=== PATIENT | female | born 1965 | race Hispanic/Latino ===

== ENCOUNTER 2017-04-13 06:01 | Inpatient (IN) | payer OTHER ==
--- NOTE | 2017-04-13 06:23 | ED PDOC ---
Arrival/HPI - General Chief Complaint: Abdominal Pain Time Seen by Provider: 04/13/17 06:04 Historian: Patient - History of Present Illness Narrative History of Present Illness (Text): 04/13/17 06:19 Pamla Freire is a 51 year old female, whose past medical history includes gastric bypass, pancreatitis, and cosmetic surgery, who presents to the emergency department complaining of gradually worsening epigastric pain radiating to her back for the past few days. Patient reports associated nausea with a few episodes of vomiting 2 days prior. Patient states she took Prilosec at home but denies any relief. Patient denies any alcohol abuse, fever, chills, chest pain, shortness of breath, urinary symptoms, back pain, neck pain, headache, dizziness, or any other complaints. Time/Duration: < week (few days) Symptom Onset: Gradual Symptom Course: Unchanged Activities at Onset: Rest, Light Context: Home Past Medical History - Provider Review Nursing Documentation Reviewed: Yes - Infectious Disease Hx of Infectious Diseases: None - Tetanus Immunization Tetanus Immunization: Unknown - Pulmonary Hx Asthma: Yes - Psychiatric Hx Depression: No Hx Emotional Abuse: No Hx Physical Abuse: No Hx Substance Use: No - Surgical History Hx Gastric Bypass Surgery: Yes - Suicidal Assessment Feels Threatened In Home Enviroment: No Family/Social History - Physician Review Nursing Documentation Reviewed: Yes Family/Social History: Unknown Family HX Smoking Status: yes Hx Alcohol Use: Yes Hx Substance Use: No Hx Substance Use Treatment: No Allergies/Home Meds Allergies/Adverse Reactions: Allergies morphine Adverse Reaction (Verified 04/13/17 06:19) VOMITING Home Medications: Home Meds Medication Instructions Recorded Confirmed No Known Home Med [No Known Home 12/26/13 04/13/17 Med] Review of Systems - Physician Review All systems were reviewed & negative as marked: Yes - Review of Systems Constitutional: Normal. absent: Night Sweats Eyes: Normal ENT: Normal Respiratory: Normal. absent: SOB, Cough Cardiovascular: Normal. absent: Chest Pain Gastrointestinal: Abdominal Pain, Nausea, Vomiting. absent: Diarrhea Genitourinary Female: Normal. absent: Dysuria, Frequency, Hematuria, Urine Output Changes Musculoskeletal: Normal. absent: Back Pain, Neck Pain Skin: Normal. absent: Rash Neurological: Normal. absent: Headache, Dizziness Endocrine: Normal Hemo/Lymphatic: Normal Psychiatric: Normal Physical Exam Vital Signs Reviewed: Yes Vital Signs Temp Pulse Resp BP 04/13/17 06:20 98.1 F 94 H 18 162/97 H Temperature: Afebrile Blood Pressure: Normal Pulse: Regular Respiratory Rate: Normal Appearance: Positive for: Well-Appearing, Non-Toxic, Comfortable Pain Distress: None Mental Status: Positive for: Alert and Oriented X 3 - Systems Exam Head: Present: Atraumatic, Normocephalic Pupils: Present: PERRL Extroacular Muscles: Present: EOMI Conjunctiva: Present: Normal Mouth: Present: Moist Mucous Membranes Neck: Present: Normal Range of Motion Respiratory/Chest: Present: Clear to Auscultation, Good Air Exchange. No: Respiratory Distress, Accessory Muscle Use Cardiovascular: Present: Regular Rate and Rhythm, Normal S1, S2. No: Murmurs Abdomen: Present: Tenderness (RUQ tenderness), Normal Bowel Sounds, Guarding. No: Distention, Peritoneal Signs Back: Present: Normal Inspection Upper Extremity: Present: Normal Inspection. No: Cyanosis, Edema Lower Extremity: Present: Normal Inspection. No: Edema Neurological: Present: GCS=15, CN II-XII Intact, Speech Normal Skin: Present: Warm, Dry, Normal Color. No: Rashes Psychiatric: Present: Alert, Oriented x 3, Normal Insight, Normal Concentration Medical Decision Making ED Course and Treatment: 04/13/17 06:20 Impression: 51 year old female complaining of epigastric pain radiating to her back, nausea , and vomiting. Plan: -- EKG -- Labs, lipase -- IV fluids -- Zofran -- Pepcid -- Toradol -- Reassess and disposition Progress Notes: Reviewed EKG, NSR at 91 bpm. Prolonged QT. Non-specific ST/T wave changes. 04/13/17 07:[address] Fernandes, pending CT scan, labs, re-evaluation, and disposition. - Lab Interpretations Lab Results: 04/13/17 06:29 Lab Results 04/13/17 06:29: WBC 4.0 L, RBC 4.77, Hgb 9.9 L, Hct 32.1 L, MCV 67.3 L, MCH 20.8 L, MCHC 30.8 L, RDW 16.1 H, Plt Count 342, MPV 9.8 - RAD Interpretation Radiology Orders: 04/13/17 06:50 GALLBLADDER & PANCREAS [US] Stat - EKG Interpretation Interpreted by ED Physician: Yes Type: 12 lead EKG - Medication Orders Current Medication Orders: Sodium Chloride (Sodium Chloride 0.9%) 1,000 mls @ 999 mls/hr IV .Q1H1M STA Stop: 04/13/17 07:32 Last Admin: 04/13/17 06:37 Dose: 999 mls/hr Discontinued Medications Famotidine (Pepcid) 20 mg IVP STAT STA Stop: 04/13/17 06:33 Last Admin: 04/13/17 06:38 Dose: 20 mg Famotidine (Pepcid) Confirm Administered Dose 20 mg .ROUTE .STK-MED ONE Stop: 04/13/17 06:35 Last Admin: 04/13/17 06:38 Dose: Ketorolac Tromethamine (Toradol) 30 mg IVP ONCE ONE Stop: 04/13/17 06:33 Last Admin: 04/13/17 06:37 Dose: 30 mg Ondansetron HCl (Zofran Inj) 4 mg IVP ONCE ONE Stop: 04/13/17 06:33 Last Admin: 04/13/17 06:37 Dose: 4 mg - Scribe Statement The provider has reviewed the documentation as recorded by the Rachelibalejo Del Toro All medical record entries made by the Rachelibalejo were at my direction and personally dictated by me. I have reviewed the chart and agree that the record accurately reflects my personal performance of the history, physical exam, medical decision making, and the department course for this patient. I have also personally directed, reviewed, and agree with the discharge instructions and disposition. Disposition/Present on Arrival - Present on Arrival Any Indicators Present on Arrival: No History of DVT/PE: No History of Uncontrolled Diabetes: No - Disposition Have Diagnosis and Disposition been Completed?: No Diagnosis: Abdominal pain Disposition Time: 07:00 Condition: STABLE Forms: [employer] (Wallisian)
[2017-04-13] MEDS ORDERED: Sodium Chloride 0.9% 1,000 ML IV STA (06:32)
[2017-04-13 06:43] LABS: HEMOGLOBIN 9.9 gm/dL (12.0-16.0); MEAN CELL VOLUME 67.3 fL (80.0-105.0); MEAN CORPUSCULAR HEMOGLOBIN 20.8 pg (25.0-35.0); MEAN CORPUSCULAR HGB CONC 30.8 g/dl (31.0-37.0); MEAN PLATELET VOLUME 9.8 fl (7.0-11.0); PLATELET COUNT 342 10^3/uL (120.0-450.0); RBC 4.77 10^6/uL (3.5-6.1); RED CELL DISTRIBUTION WIDTH 16.1 % (11.5-14.5)
[2017-04-13 06:51] LABS: ALB/GLOB RATIO 1.1 (1.1-1.8); ALT/SGPT 603 U/L (7-56); AST/SGOT 648 U/L (15-39); BLOOD UREA NITROGEN 9 mg/dL (7-21); GFR AFRICAN-AMERICAN > 60; GFR NON-AFRICAN AMERICAN > 60; LIPASE 49 U/L (23-300)
[2017-04-13] MEDS ORDERED: HYDROmorphone 0.5 mg/0.5 ml ISec IVP STA ×3 (07:14→12:16)
--- NOTE | 2017-04-13 07:15 | ED PDOC ---
Physical Exam Vital Signs Temp Pulse Resp BP Pulse Ox 04/13/17 08:12 80 18 148/90 95 04/13/17 06:20 98.1 F 94 H 18 162/97 H Medical Decision Making ED Course and Treatment: 04/13/17 07:00 Patient signed out to me by Dr. Yu. 51 year old female complaining of abdominal pain for a few hours. Pending Sono. 04/13/17 08:52 Gallbladder Ultrasound: Dictator : Anastacio Curtis MD FINDINGS: LIVER:Measures 23.8 cm in length suggestive of hepatomegaly. Normal echogenicity of the liver parenchyma. No mass. No intrahepatic bile duct dilatation. GALLBLADDER: Distended but thin walled with no pericholecystic fluid collection. Numerous calculi are identified layering in the dependent portion with a moderate amount of sludge. Clinically correlate for potential cholecystitis though this is an equivocal appearance. COMMON BILE DUCT:Measures 9.8 mm with no choledocholithiasis appreciable. PANCREAS:Completely obscured by bowel gas. RIGHT KIDNEY:Measures 12.8 cm in length. Normal echogenicity. No calculus, mass , or hydronephrosis. AORTA:No aneurysmal dilatation. IVC:Unremarkable. OTHER FINDINGS:None . IMPRESSION: 1. 9.8 mm common bile duct dilatation without obvious choledocholithiasis. The gallbladder is distended but thin walled with no pericholecystic fluid collection. Extensive cholelithiasis identified as well as sludge at the dependent gallbladder. Clinically correlate for potential cholecystitis. No prominent biliary tree dilatation. 2. Hepatomegaly suggested. 3. Previous completely obscured by overlying bowel gas. 04/13/17 08:59 Sono results as noted. Patient started on iv antibiotics for cholecystitis. Given analgesia for pain. Case discussed with surgical scrub tech for evaluation. Case discussed with Dr. Yung for admission for acute cholecystitis. - Lab Interpretations Lab Results: 04/13/17 06:29 04/13/17 06:29 Lab Results 04/13/17 06:29: Sodium 141, Potassium 3.5 L, Chloride 103, Carbon Dioxide 29, Anion Gap 13, BUN 9, Creatinine 0.6, Est GFR ( Amer) > 60, Est GFR (Non- Af Amer) > 60, Random Glucose 97, Calcium 9.0, Total Bilirubin 3.3 H, AST 648 H , ALT 603 H, Alkaline Phosphatase 405 H, Total Protein 7.5, Albumin 4.0, Globulin 3.5, Albumin/Globulin Ratio 1.1, Lipase 49 04/13/17 06:29: WBC 4.0 L, RBC 4.77, Hgb 9.9 L, Hct 32.1 L, MCV 67.3 L, MCH 20.8 L, MCHC 30.8 L, RDW 16.1 H, Plt Count 342, MPV 9.8, Gran % 67.5, Lymph % ( Auto) 18.8 L, Hickman % (Auto) 9.8 H, Eos % (Auto) 3.4, Baso % (Auto) 0.5, Gran # 2.76, Lymph # 0.8 L, Hickman # 0.4, Eos # 0.1, Baso # 0.02 - RAD Interpretation Radiology Orders: 04/13/17 06:50 GALLBLADDER & PANCREAS [US] Stat - Medication Orders Current Medication Orders: Metronidazole (Flagyl) 500 mg in 100 mls @ 100 mls/hr IVPB STAT STA PRN Reason: Protocol Stop: 04/13/17 09:52 Ceftriaxone Sodium (Rocephin 1 Gram Ivpb) 1 gm in 100 mls @ 200 mls/hr IV ONCE STA PRN Reason: Protocol Stop: 04/13/17 09:22 Discontinued Medications Famotidine (Pepcid) 20 mg IVP STAT STA Stop: 04/13/17 06:33 Last Admin: 04/13/17 06:38 Dose: 20 mg Famotidine (Pepcid) Confirm Administered Dose 20 mg .ROUTE .ST-MED ONE Stop: 04/13/17 06:35 Last Admin: 04/13/17 06:38 Dose: Hydromorphone HCl (Dilaudid) 0.5 mg IVP STAT STA Stop: 04/13/17 07:15 Last Admin: 04/13/17 07:28 Dose: 0.5 mg Hydromorphone HCl (Dilaudid) 0.5 mg IVP STAT STA Stop: 04/13/17 08:11 Sodium Chloride (Sodium Chloride 0.9%) 1,000 mls @ 999 mls/hr IV .Q1H1M STA Stop: 04/13/17 07:32 Last Admin: 04/13/17 06:37 Dose: 999 mls/hr Ketorolac Tromethamine (Toradol) 30 mg IVP ONCE ONE Stop: 04/13/17 06:33 Last Admin: 04/13/17 06:37 Dose: 30 mg Ondansetron HCl (Zofran Inj) 4 mg IVP ONCE ONE Stop: 04/13/17 06:33 Last Admin: 04/13/17 06:37 Dose: 4 mg - Scribe Statement The provider has reviewed the documentation as recorded by the Salvador Garcia Provider Scribe Attestation: All medical record entries made by the Scribe were at my direction and personally dictated by me. I have reviewed the chart and agree that the record accurately reflects my personal performance of the history, physical exam, medical decision making, and the department course for this patient. I have also personally directed, reviewed, and agree with the discharge instructions and disposition. Disposition/Present on Arrival - Present on Arrival Any Indicators Present on Arrival: No History of DVT/PE: No History of Uncontrolled Diabetes: No Urinary Catheter: No History of Decub. Ulcer: No History Surgical Site Infection Following: None - Disposition Have Diagnosis and Disposition been Completed?: Yes Diagnosis: Abdominal pain, Cholecystitis Disposition: HOSPITALIZED Disposition Time: 08:45 Patient Plan: Admission Patient Problems: Current Active Problems Problem Status Onset Abdominal pain Acute Condition: FAIR Referrals: Eagle Gates MD [Primary Care Provider] - Follow up with primary Forms: [employer] (Irish)
[2017-04-13 07:30] LABS: BASO # 0.02 K/mm3 (0.0-2.0); BASO % 0.5 % (0.0-3.0); EOS # 0.1 (0.0-0.7); EOS % 3.4 % (1.5-5.0); GRAN # 2.76 (1.4-6.5); GRAN % 67.5 % (50.0-68.0); LYMPH # 0.8 (1.2-3.4); LYMPH % 18.8 % (22.0-35.0); MONO # 0.4 (0.1-0.6); MONO % 9.8 % (1.0-6.0)
[2017-04-13] MEDS ORDERED: HYDROmorphone 1 mg/ml ISec IVP STA (08:10)
--- NOTE | 2017-04-13 08:44 | US ---
HISTORY: upper abdominal pain COMPARISON: None. TECHNIQUE: Sonographic evaluation of the right upper quadrant of the abdomen. FINDINGS: LIVER: Measures 23.8 cm in length suggestive of hepatomegaly. Normal echogenicity of the liver parenchyma. No mass. No intrahepatic bile duct dilatation. GALLBLADDER: Distended but thin walled with no pericholecystic fluid collection. Numerous calculi are identified layering in the dependent portion with a moderate amount of sludge. Clinically correlate for potential cholecystitis though this is an equivocal appearance. COMMON BILE DUCT: Measures 9.8 mm with no choledocholithiasis appreciable. PANCREAS: Completely obscured by bowel gas. RIGHT KIDNEY: Measures 12.8 cm in length. Normal echogenicity. No calculus, mass, or hydronephrosis. AORTA: No aneurysmal dilatation. IVC: Unremarkable. OTHER FINDINGS: None . IMPRESSION: 1. 9.8 mm common bile duct dilatation without obvious choledocholithiasis. The gallbladder is distended but thin walled with no pericholecystic fluid collection. Extensive cholelithiasis identified as well as sludge at the dependent gallbladder. Clinically correlate for potential cholecystitis. No prominent biliary tree dilatation. 2. Hepatomegaly suggested. 3. Previous completely obscured by overlying bowel gas.
[2017-04-13] MEDS ORDERED: cefTRIAXone 1 gm 1 GM/100 ML BAG IV STA (08:53)
[2017-04-13] MEDS ORDERED: metroNIDAZOLE IV 500 mg/100 ml 500 MG/100 ML BAG IVPB STA (08:53)
--- NOTE | 2017-04-13 09:33 | CP.PCM.CON ---
History of Present Illness - History of Present Illness History of Present Illness: General Surgery Consult Note Resident: Gladys Attending: Brian HPI: We are being consulted for RUQ pain. Pt is a 51 year old WF with a 5 day hx of RUQ pain radiating to the R. shoulder and back. It is associated with one episodes of nonbloody emesis. Also complains of not being able to take Justine deep breath. Denies diarrhea. The pain has been constant since its onset. She has had one prior episode of this pain over 10 years ago. She has a history of a Mercedez-en-Y 17 years ago. She lost 100lbs in 6-8 months. Abdominal US showed numerous stones and sludge in the GB and a CBD measuring 9.8mm with no obvious choledocholithiasis. PMH: Lyme Dz, Asthma PSH: Mercedez-en-Y, x2 Meds: Pristiq Allergies: Morphine Review of Systems - Constitutional Constitutional: As Per HPI - EENT Eyes: As Per HPI Ears: As Per HPI Nose/Mouth/Throat: As Per HPI - Breasts Breasts: As Per HPI - Cardiovascular Cardiovascular: As Per HPI - Respiratory Respiratory: Dyspnea - Gastrointestinal Gastrointestinal: As Per HPI, Abdominal Pain, Vomiting - Genitourinary Genitourinary: As Per HPI - Musculoskeletal Musculoskeletal: Back Pain Additional comments: R. Shoulder pain Past Patient History - Infectious Disease Hx of Infectious Diseases: None - Tetanus Immunizations Tetanus Immunization: Unknown - Past Social History Smoking Status: Never Smoked Chewing Tobacco Use: No Alcohol: None Drugs: Denies - PULMONARY Hx Asthma: Yes - PSYCHIATRIC Hx Depression: No Hx Emotional Abuse: No Hx Physical Abuse: No Hx Substance Use: No - SURGICAL HISTORY Hx Gastric Bypass Surgery: Yes (Mercedez-en-Y) Meds Allergies/Adverse Reactions: Allergies Allergy/AdvReac Type Severity Reaction Status Date / Time morphine AdvReac VOMITING Verified 04/13/17 06:19 - Medications Medications: Current Medications Metronidazole (Flagyl) 500 mg in 100 mls @ 100 mls/hr IVPB STAT STA PRN Reason: Protocol Stop: 04/13/17 09:52 Physical Exam - Constitutional Appears: Non-toxic - Head Exam Head Exam: NORMAL INSPECTION - Eye Exam Eye Exam: EOMI - ENT Exam ENT Exam: Mucous Membranes Moist - Respiratory Exam Respiratory Exam: Clear to Auscultation Bilateral - Cardiovascular Exam Cardiovascular Exam: REGULAR RHYTHM - GI/Abdominal Exam GI & Abdominal Exam: Soft, Tenderness (RUQ, +Reyes). absent: Distended, Firm Results - Vital Signs Recent Vital Signs: Last Vital Signs Temp 98.1 F 04/13/17 06:20 Pulse 80 04/13/17 08:12 Resp 18 04/13/17 08:12 BP 148/90 04/13/17 08:12 Pulse Ox 95 04/13/17 08:12 - Labs Result Diagrams: 04/13/17 06:29 04/13/17 06:29 Assessment & Plan - Assessment and Plan (Free Text) Assessment: 51 y/o WF with Cholelithiasis * poss MRCP * NPO * Pain Control * IVF * Will discuss case with attending Anastacio Graham DO PGY-1
[2017-04-13] MEDS ORDERED: HYDROmorphone 0.5 mg/0.5 ml ISec IVP PRN (10:31)
--- NOTE | 2017-04-13 11:06 | CARD ---
APPROVED REPORT EKG Measurement Heart [id number] <Conclusion> Normal sinus rhythm with sinus arrhythmia Prolonged QT Abnormal ECG
[2017-04-13] MEDS ORDERED: HYDROmorphone 1 mg/ml ISec IVP PRN (13:09)
[2017-04-13] MEDS ORDERED: Oxycodone/Acetaminophen 5/325 mg Tab PO PRN (13:09)
[2017-04-13 14:19] VITALS: BMI 35.2
[2017-04-13] MEDS ORDERED: Pneumococcal 23-Valent Vaccine IM ONE (14:19)
[2017-04-13 16:11] LABS: URINE BILIRUBIN MODERATE (NEGATIVE); URINE BLOOD NEGATIVE (NEGATIVE); URINE GLUCOSE (UA) NEGATIVE (NEGATIVE); URINE LEUKOCYTE ESTERASE NEGATIVE Leu/uL (NEGATIVE); URINE NITRATE NEGATIVE (NEGATIVE); URINE PROTEIN TRACE mg/dL (<30 mg/dL)
--- NOTE | 2017-04-13 16:11 | CP.PCM.CON ---
<Christopher Brady - Last Filed: 04/13/17 16:12> History of Present Illness - History of Present Illness History of Present Illness: PGY5 GI Fellow Consult Note Patient is 51yo female with PMHx significant for morbid obesity s/p Mercedez-en-Y gastric bypass surgery who presented to the ED with abdominal pain. The patient states that Monday she suddenly developed epigastric and RUQ abdominal pain radiating to the back and right shoulder which awoke her from sleep several hours after eating dinner. Pain remained constant and intensified that evening leading to nausea and vomiting. In the days that followed pain returned in waves but remained present improving to, at best, a 4/10. She altered her diet, eating only liquids for two days but notes that Monday she became very nauseated and unable to tolerate PO, finally coming to the ED this morning when she could no longer tolerate the pain. Work up thus far has revealed abnormal LFTs in a mixed pattern with U/S revealing dilated CBD (9.8mm) with extensive cholelithiasis. She was initially scheduled for laparoscopic cholecystectomy but this has since been cancelled and our service consulted for further evaluation. Patient is in severe pain at present, modestly improved with currently pain management. She admits to continued nausea and dry heaves. Denies any change in bowel habits, sick contacts, fever, chills, weight loss, hematochezia, melena. PMHx: See HPI PSHx: Mercedez en Y gastric bypass 17 yrs ago; 2 FHx: Multiple family members with Familial Mediterranean Fever Social: Denies EtOH, tobacco or illicit drug use Endo: Endoscopy prior to gastric bypass surgery, unremarkable 12 system ROS performed and negative except where stated above. Past Patient History - Infectious Disease Hx of Infectious Diseases: None - Tetanus Immunizations Tetanus Immunization: Unknown - Past Social History Smoking Status: Never Smoked - CARDIAC Hx Cardiac Disorders: No - PULMONARY Hx Respiratory Disorders: Yes Hx Asthma: Yes - NEUROLOGICAL Hx Neurological Disorder: No - HEENT Hx HEENT Problems: No - RENAL Hx Chronic Kidney Disease: No - ENDOCRINE/METABOLIC Hx Endocrine Disorders: No - HEMATOLOGICAL/ONCOLOGICAL Hx Blood Disorders: No - INTEGUMENTARY Hx Dermatological Problems: Yes (TATTOOS) - MUSCULOSKELETAL/RHEUMATOLOGICAL Hx Musculoskeletal Disorders: No Hx Falls: No - GASTROINTESTINAL Hx Gastrointestinal Disorders: Yes Hx Gall Bladder Disease: Yes (CHOLECYSTITIS-NUMEROUS GSTONES CBD 9.8 04-13-17) Other/Comment: GASTRIC BYPASS ROUEX-EN 17 YRS AGO.LOST 100 LBS IN 6-8 MONS. - GENITOURINARY/GYNECOLOGICAL Hx Genitourinary Disorders: No - PSYCHIATRIC Hx Psychophysiologic Disorder: Yes Hx Depression: Yes Hx Emotional Abuse: No Hx Physical Abuse: No Hx Substance Use: No - SURGICAL HISTORY Hx Surgeries: Yes Hx Gastric Bypass Surgery: Yes (Mercedez-en-Y) Meds Allergies/Adverse Reactions: Allergies Allergy/AdvReac Type Severity Reaction Status Date / Time morphine AdvReac VOMITING Verified 04/13/17 12:12 - Medications Medications: Current Medications Hydromorphone HCl (Dilaudid) 1 mg IVP Q4H PRN PRN Reason: Pain, severe (8-10) Last Admin: 04/13/17 15:27 Dose: 1 mg Dextrose/Sodium Chloride (Dextrose 5%/0.45% Ns 1000 Ml) 1,000 mls @ 150 mls/hr IV .Q6H40M KORY Ondansetron HCl (Zofran Inj) 4 mg IVP Q4 PRN PRN Reason: Nausea/Vomiting Last Admin: 04/13/17 15:26 Dose: 4 mg Oxycodone/Acetaminophen (Percocet 5/325 Mg Tab) 1 tab PO Q4H PRN PRN Reason: Pain, moderate (4-7) Stop: 04/16/17 13:10 Physical Exam - Constitutional Appears: In Acute Distress (significant discomfort) - Eye Exam Eye Exam: EOMI, PERRL - ENT Exam ENT Exam: Mucous Membranes Dry - Respiratory Exam Respiratory Exam: Clear to Auscultation Bilateral. absent: Rales, Rhonchi, Wheezes - Cardiovascular Exam Cardiovascular Exam: Tachycardia, REGULAR RHYTHM, +S1, +S2 - GI/Abdominal Exam GI & Abdominal Exam: Guarding, Normal Bowel Sounds, Soft, Tenderness (RUQ, minimal in epigastrium; +brand). absent: Distended, Firm, Organomegaly, Rigid - Extremities Exam Extremities exam: Positive for: normal inspection. Negative for: pedal edema - Neurological Exam Neurological exam: Alert, Oriented x3 - Psychiatric Exam Psychiatric exam: Anxious - Skin Skin Exam: Diaphoretic, Warm Results - Vital Signs Recent Vital Signs: Last Vital Signs Temp 98.4 F 04/13/17 13:55 Pulse 80 04/13/17 13:55 Resp 18 04/13/17 13:55 BP 148/90 04/13/17 13:55 Pulse Ox 95 04/13/17 08:12 - Labs Result Diagrams: 04/13/17 06:29 04/13/17 06:29 Assessment & Plan - Assessment and Plan (Free Text) Assessment: Patient is 51yo female with PMHx significant for morbid obesity s/p Mercedez-en-Y gastric bypass surgery who presented to the ED with abdominal pain. -Abdominal pain -Elevated LFTs, mixed picture - suggestive of biliary obstruction, possibly choledocolithiasis -Cholelithiasis -Nausea and vomiting -H/O Mercedez-en-Y gastric bypass Plan: -Patient would benefit from MRCP to evaluate CBD for choledocolithiasis or other obstructive lesion -If MRCP + for obstruction, patient would benefit from ERCP; however, given her Mercedez-en-Y anatomy, we would be unable to perform this procedure at [facility] [place] [facility] as we do not have the equipment available for this procedure; Pt would likely benefit from transfer to a [place] setting for ongoing care if possible -If MRCP -, recommend re-evaluation with surgical consult for cholecystectomy -Recommend Zosyn IV as ordered given risk for cholangitis -IVF as ordered -NPO for MRCP; then OK to have liquid diet if tolerating -Increase pain medications to alleviate symptoms; discussed with primary service -Zofran PRN nausea - Date & Time Date: 04/13/17 Time: 15:45 <Hubert Haskins - Last Filed: 04/13/17 17:37> Meds - Medications Medications: Current Medications Hydromorphone HCl (Dilaudid) 1 mg IVP Q4H PRN PRN Reason: Pain, severe (8-10) Last Admin: 04/13/17 15:27 Dose: 1 mg Dextrose/Sodium Chloride (Dextrose 5%/0.45% Ns 1000 Ml) 1,000 mls @ 150 mls/hr IV .Q6H40M KORY Piperacillin Sod/Tazobactam Sod (Zosyn 3.375 In Ns 100ml) 100 mls @ 200 mls/hr IVPB Q6 KORY PRN Reason: Protocol Stop: 04/14/17 00:29 Ondansetron HCl (Zofran Inj) 4 mg IVP Q4 PRN PRN Reason: Nausea/Vomiting Last Admin: 04/13/17 15:26 Dose: 4 mg Oxycodone/Acetaminophen (Percocet 5/325 Mg Tab) 1 tab PO Q4H PRN PRN Reason: Pain, moderate (4-7) Stop: 04/16/17 13:10 Results - Vital Signs Recent Vital Signs: Last Vital Signs Temp 98.4 F 04/13/17 13:55 Pulse 80 04/13/17 13:55 Resp 18 04/13/17 13:55 BP 148/90 04/13/17 13:55 Pulse Ox 95 04/13/17 08:12 - Labs Result Diagrams: 04/13/17 06:29 04/13/17 06:29 Labs: Laboratory Results - last 24 hr 04/13/17 15:00 Urine Color Yellow Urine Appearance Clear Urine pH 6.0 Ur Specific [place] 1.020 Urine Protein Trace H Urine Glucose (UA) Negative Urine Ketones Negative Urine Blood Negative Urine Nitrate Negative Urine Bilirubin Moderate H Urine Urobilinogen 4.0 H Ur Leukocyte Esterase Negative Urine RBC TEST NOT PERFORMED Urine WBC 2 - 5 Ur Epithelial Cells 6 - 8 Amorphous Sediment Small Urine HCG, Qual Negative Attending/Attestation - Attestation I have personally seen and examined this patient.: Yes I have fully participated in the care of the patient.: Yes I have reviewed all pertinent clinical information: Yes Notes (Text): 04/13/17 17:10 51 year old female with h/o obesity s/p RNY gastric bypass who presents with severe epigastric pain radiating to the back, cholelithiasis, elevated lfts, and dilated CBD suggestive of choledocholithiais 1. Choledocholithiasis 2. Cholelithiasis Plan: -recommend MRCP to confirm diagnosis of choledocholithiasis -recommend IV antibiotics (zosyn) for biliary obstruction and prophylaxis of cholangitis -patient will likely need balloon enteroscopy/ercp which is not possible at this facility -would recommend transfer to tertiary care facility such as [facility] -in the meantime, would recommend pain control with narcotics, IV hydration, anti-emetics -liquid diet unless persistent vomiting -appreciate surgical evaluation -in the event that she needs urgent biliary decompression or a temporizing measure until such time that she can undergo balloon assisted ERCP, PTC would probably be the best approach -alternatively, the patient could undergo cholecystectomy, manual CBD exploration, +/- T Tube insertion depending on the surgical opinion -there are no endoscopic options for this patient at this hospital such as typical ERCP
[2017-04-13 16:14] LABS: HCG,QUALITATIVE URINE NEGATIVE (NEGATIVE)
[2017-04-13 16:15] LABS: URINE APPEARANCE CLEAR (CLEAR); URINE COLOR YELLOW (YELLOW)
[2017-04-13 16:34] LABS: URINE AMORPHOUS SEDIMENT SMALL
[2017-04-13] MEDS: Piperacillin/Tazobact 3.375 gm 100 ML IVPB SCH ×2 (18:19→23:46)
[2017-04-13] MEDS: HYDROmorphone 1 mg/ml ISec IVP PRN (18:20)
[2017-04-13 18:23] VITALS: RESP 20
[2017-04-13] MEDS: Dextrose 5%/0.45% NS 1,000 ML IV SCH (18:45)
--- NOTE | 2017-04-13 20:16 | MRI ---
EXAM: MR Abdomen Without Intravenous Contrast CLINICAL HISTORY: The patient age is 51 years old and is female; Pain; Abdominal pain; Acute; Patient HX: ? Gb stone. Abdominal pain; Additional info: Elevated lfts, R/O choledoco. , H/o uziel-en-y Facility exam id and description: Mri mrcp mrcp and abdomen w/o contrast TECHNIQUE: Multiplanar magnetic resonance images of the abdomen without intravenous contrast. EXAM DATE/TIME: 04/13/2017 3:24 PM COMPARISON: US - GALLBLADDER PANCREAS 04/13/2017 6:59:43 AM FINDINGS: Lower thorax: There is a minimal right pleural effusion. Liver: The liver measures 21.5 cm in the craniocaudad dimension, consistent with hepatomegaly. No discrete hepatic mass is visualized. Gallbladder and bile ducts: The gallbladder is distended. Multiple hypodense gallstones are visualized. A fluid level is visualized within the gallbladder, suggestive of sludge. There is biliary dilatation. The common bile duct measures 1.0 cm in diameter. No definitive filling defects are identified within the common bile duct to suggest a common bile duct stone. There is tapering of the common bile duct distally. Ampullary stenosis cannot be excluded. There is no significant pericholecystic fluid. Pancreas: Atrophic changes are noted of the pancreas. There is no significant dilatation of the pancreatic duct. Spleen: The spleen measures 13.5 cm in length, consistent with splenomegaly. Adrenals: No mass. Kidneys and ureters: No hydronephrosis. No discrete mass or cyst. Stomach and bowel: Fluid is seen within the proximal stomach. No visualized bowel distention. Intraperitoneal space: No significant fluid collection. Bones/joints: Disc herniation/protrusions are visualized at L2-3, L3-4 and L5-S1, with associated narrowing of the thecal sac. Evaluation of the lumbar spine is limited. Vasculature: No abdominal aortic aneurysm. Lymph nodes: No enlarged lymph nodes. IMPRESSION: 1. The gallbladder is distended. Multiple hypodense gallstones are visualized. A fluid level is visualized within the gallbladder, suggestive of sludge. Correlate clinically for possible cholecystitis. 2. There is biliary dilatation. The common bile duct measures 1.0 cm in diameter. No definitive filling defects are identified within the common bile duct to suggest a common bile duct stone. Ampullary stenosis cannot be excluded. 3. Hepatosplenomegaly. 4. Disc herniation/protrusions are visualized at L2-3, L3-4 and L5-S1, with associated narrowing of the thecal sac. Evaluation of the lumbar spine is limited. A dedicated MRI lumbar spine is recommended. 5. There is a minimal right pleural effusion. 6. Additional findings described above.
--- NOTE | 2017-04-13 20:58 | CP.PCM.HP ---
<IGNACIO SÁNCHEZ - Last Filed: 04/13/17 20:45> History of Present Illness - History of Present Illness History of Present Illness: Ms. Freire is a 51 year old female, whose past medical history includes gastric bypass, pancreatitis, and cosmetic surgery, who presented with complaints of gradually worsening epigastric pain radiating to her back for the past few days. The patient states that Monday she suddenly developed epigastric and RUQ abdominal pain radiating to the back and right shoulder which awoke her from sleep several hours after eating dinner. Pain remained constant and intensified that evening leading to nausea and vomiting. In the days that followed pain returned in waves but remained present improving to a 4/10. She altered her diet , eating only liquids for two days but notes that Monday she became very nauseated and unable to tolerate PO. This prompted her to come to the ED this morning when she could no longer tolerate the pain. A gallbladder U/S done in the ED showed CBD to 9.8mm, biliary sludge and extensive cholelithiasis. She was given toradol and dilaudid for pain. Currently patient endorses that her abdominal pain is unchanged in quality and presentation. She notes that she hasn't vomited since admission. Patient denies any alcohol abuse, fever, chills, chest pain, shortness of breath, urinary symptoms, back pain, neck pain, headache, dizziness, or any other complaints. PMH: Gastric Bypass, Pancreatitis, Anemia, Familial Mediterranean Fever (FMF) PSH: Gastric Bypass, cosmetic surgery FamHX: non-contributory SocHX: Denies tobacco, alcohol or illicit drug use Allergies: morphine Home Meds: Pristiq, Vitamin D and Scopolamine Present on Admission - Present on Admission Any Indicators Present on Admission: No Review of Systems - Review of Systems Review of Systems: Please refer to HPI Past Patient History - Infectious Disease Hx of Infectious Diseases: None - Tetanus Immunizations Tetanus Immunization: Unknown - Past Social History Smoking Status: Never Smoked - CARDIAC Hx Cardiac Disorders: No - PULMONARY Hx Respiratory Disorders: Yes Hx Asthma: Yes - NEUROLOGICAL Hx Neurological Disorder: No - HEENT Hx HEENT Problems: No - RENAL Hx Chronic Kidney Disease: No - ENDOCRINE/METABOLIC Hx Endocrine Disorders: No - HEMATOLOGICAL/ONCOLOGICAL Hx Blood Disorders: No - INTEGUMENTARY Hx Dermatological Problems: Yes (TATTOOS) - MUSCULOSKELETAL/RHEUMATOLOGICAL Hx Musculoskeletal Disorders: No Hx Falls: No - GASTROINTESTINAL Hx Gastrointestinal Disorders: Yes Hx Gall Bladder Disease: Yes (CHOLECYSTITIS-NUMEROUS GSTONES CBD 9.8 04-13-17) Other/Comment: GASTRIC BYPASS ROUEX-EN 17 YRS AGO.LOST 100 LBS IN 6-8 MONS. - GENITOURINARY/GYNECOLOGICAL Hx Genitourinary Disorders: No - PSYCHIATRIC Hx Psychophysiologic Disorder: Yes Hx Depression: Yes Hx Emotional Abuse: No Hx Physical Abuse: No Hx Substance Use: No - SURGICAL HISTORY Hx Surgeries: Yes Hx Gastric Bypass Surgery: Yes (Mercedez-en-Y) Meds Allergies/Adverse Reactions: Allergies Allergy/AdvReac Type Severity Reaction Status Date / Time morphine AdvReac VOMITING Verified 04/13/17 12:12 Physical Exam - Constitutional Appears: No Acute Distress - Head Exam Head Exam: NORMAL INSPECTION, NORMOCEPHALIC - Eye Exam Eye Exam: EOMI, Normal appearance - ENT Exam ENT Exam: Mucous Membranes Moist, Normal Exam - Neck Exam Neck exam: Positive for: Full Rom. Negative for: Lymphadenopathy - Respiratory Exam Respiratory Exam: Clear to Auscultation Bilateral, NORMAL BREATHING PATTERN. absent: Rales, Rhonchi, Wheezes, Respiratory Distress - Cardiovascular Exam Cardiovascular Exam: REGULAR RHYTHM, RRR, +S1, +S2. absent: Bradycardia, Tachycardia, Diastolic murmur, Systolic Murmur - GI/Abdominal Exam GI & Abdominal Exam: Distended, Normal Bowel Sounds, Tenderness. absent: Firm, Guarding, Hernia, Organomegaly - Extremities Exam Extremities exam: Positive for: normal capillary refill, normal inspection, pedal pulses present. Negative for: calf tenderness, pedal edema - Neurological Exam Neurological exam: Alert, Oriented x3 - Psychiatric Exam Psychiatric exam: Normal Affect, Normal Mood - Skin Skin Exam: Dry, Intact, Normal Color, Warm Results - Vital Signs Recent Vital Signs: Last Vital Signs Temp 97.2 F L 04/13/17 16:00 Pulse 91 H 04/13/17 16:00 Resp 20 04/13/17 16:00 BP 150/90 04/13/17 16:00 Pulse Ox 97 04/13/17 16:00 - Labs Result Diagrams: 04/13/17 06:29 04/13/17 06:29 Labs: Laboratory Results - last 24 hr 04/13/17 15:00 Urine Color Yellow Urine Appearance Clear Urine pH 6.0 Ur Specific [place] 1.020 Urine Protein Trace H Urine Glucose (UA) Negative Urine Ketones Negative Urine Blood Negative Urine Nitrate Negative Urine Bilirubin Moderate H Urine Urobilinogen 4.0 H Ur Leukocyte Esterase Negative Urine RBC TEST NOT PERFORMED Urine WBC 2 - 5 Ur Epithelial Cells 6 - 8 Amorphous Sediment Small Urine HCG, Qual Negative Assessment & Plan - Assessment and Plan (Free Text) Assessment: Ms. Freire is a 51 year old female, whose past medical history includes gastric bypass, pancreatitis, and cosmetic surgery, who presented with complaints of gradually worsening epigastric pain radiating to her back for the past few days. Plan: 1. Cholelithiasis/CBD -Surgery consulted, all recommendations appreciated -GI consulted, all recommendations appreciated -MRCP showed distended GB with fluid level, CBD dilation to 1.0cm with no definitive filling defects and hepatosplenomegaly -ERCP recommended to be done and Dr. Vargas at [facility] will accept patient into his care for procedure to be done at this facility, as ERCP s/p Mercedez-En-Y can not be performed at [facility] -Start Zosyn, per GI for cholangitis -D5W at 150mls/hr -Dilaudid for pain -Zofran PRN for N/V -NPO for pending surgery 2. Anemia -stable H/H -will cont to monitor 3. GI/DVT Prophylaxis -zofran/scd's Patient seen and case discussed in detail with attending, Dr. Yung. - Date & Time Date: 04/13/17 Time: 16:00 <Aga REINA,[facility] - Last Filed: 04/14/17 15:43> Results - Vital Signs Recent Vital Signs: Last Vital Signs Temp 97.2 F L 04/13/17 16:00 Pulse 91 H 04/13/17 16:00 Resp 20 04/13/17 16:00 BP 150/90 04/13/17 16:00 Pulse Ox 97 04/13/17 16:00 - Labs Result Diagrams: 04/14/17 08:30 04/14/17 08:30 Labs: Laboratory Results - last 24 hr 04/13/17 04/14/17 04/14/17 15:00 07:26 08:30 WBC RBC Hgb Hct MCV MCH MCHC RDW Plt Count MPV Gran % Lymph % (Auto) [place] % (Auto) Eos % (Auto) Baso % (Auto) Gran # Lymph # [place] # Eos # Baso # Sodium Potassium Chloride Carbon Dioxide Anion Gap BUN Creatinine Est GFR ( Amer) Est GFR (Non-Af Amer) Random Glucose Calcium Total Bilirubin AST ALT Alkaline Phosphatase Total Protein Albumin Globulin Albumin/Globulin Ratio Urine Color Yellow Urine Appearance Clear Urine pH 6.0 Ur Specific [place] 1.020 Urine Protein Trace H Urine Glucose (UA) Negative Urine Ketones Negative Urine Blood Negative Urine Nitrate Negative Urine Bilirubin Moderate H Urine Urobilinogen 4.0 H Ur Leukocyte Esterase Negative Urine RBC TEST NOT PERFORMED Urine WBC 2 - 5 Ur Epithelial Cells 6 - 8 Amorphous Sediment Small Urine HCG, Qual Negative IgG 676.4 L Hepatitis A IgM Ab Negative Hep Bs Antigen Negative Hep Bs Antibody Hep B Core IgM Ab Negative Hepatitis C Antibody Negative 04/14/17 04/14/17 04/14/17 08:30 08:30 08:30 WBC 10.9 D RBC 4.03 Hgb 8.4 L Hct 27.5 L MCV 68.2 L MCH 20.8 L MCHC 30.5 L RDW 16.4 H Plt Count 284 MPV 10.2 Gran % 82.0 H Lymph % (Auto) 6.9 L [place] % (Auto) 11.0 H Eos % (Auto) 0.0 L Baso % (Auto) 0.1 Gran # 8.90 H Lymph # 0.8 L [place] # 1.2 H Eos # 0.0 Baso # 0.01 Sodium 136 Potassium 3.1 L Chloride 98 Carbon Dioxide 27 Anion Gap 14 BUN 8 Creatinine 0.7 Est GFR ( Amer) > 60 Est GFR (Non-Af Amer) > 60 Random Glucose 110 Calcium 8.2 L Total Bilirubin 4.5 H AST 179 H ALT 346 H Alkaline Phosphatase 323 H Total Protein 6.4 Albumin 3.6 Globulin 2.9 Albumin/Globulin Ratio 1.2 Urine Color Urine Appearance Urine pH Ur Specific [place] Urine Protein Urine Glucose (UA) Urine Ketones Urine Blood Urine Nitrate Urine Bilirubin Urine Urobilinogen Ur Leukocyte Esterase Urine RBC Urine WBC Ur Epithelial Cells Amorphous Sediment Urine HCG, Qual IgG Hepatitis A IgM Ab Hep Bs Antigen Hep Bs Antibody Negative Hep B Core IgM Ab Hepatitis C Antibody Attending/Attestation - Attestation I have personally seen and examined this patient.: Yes I have fully participated in the care of the patient.: Yes I have reviewed all pertinent clinical information: Yes Notes (Text): 04/14/17 15:39 Patient was seen and examined with medical detailist. Agreed with resident assessment and plan. 51 year old female with PMH of obesity ,SP RNY gastric bypass who presents with severe epigastric pain radiating to the back found to have cholelithiasis, elevated LFT , and dilated CBD suggestive of choledocholithiais.We will get MRCP to confirm diagnosis of choledocholithiasis, IV antibiotics Rocephin and Flagyl for biliary obstruction and prophylaxis of cholangitis.patient will likely need balloon enteroscopy/ercp .GI evaluation is appreciated.Patient case was discussed with [facility], patient has been accepted , and will be transfered once bed is available at [facility]. Management plan was discussed in detail with patient Education was provided.
[2017-04-13] MEDS ORDERED: HYDROmorphone 1 mg/ml ISec SC ONE (22:28)
--- NOTE | 2017-04-13 23:20 | CP.PCM.PN ---
Subjective - Date & Time of Evaluation Date of Evaluation: 04/13/17 Time of Evaluation: 23:19 - Subjective Subjective: 22 g angicath inserted in left ankle, poor iv access, patient had been tried in both arms earlier with failed attempts, offered external jagular but refused for now. Objective - Vital Signs/Intake and Output Vital Signs (last 24 hours): Temp Pulse Resp BP Pulse Ox 97.2 F L 91 H 20 150/90 97 04/13/17 16:00 04/13/17 16:00 04/13/17 16:00 04/13/17 16:00 04/13/17 16:00 Intake and Output: 04/13/17 04/14/17 18:59 06:59 Intake Total 0 Balance 0 - Medications Medications: Current Medications Hydromorphone HCl (Dilaudid) 1 mg IVP Q3H PRN PRN Reason: Pain, severe (8-10) Last Admin: 04/13/17 18:20 Dose: 1 mg Dextrose/Sodium Chloride (Dextrose 5%/0.45% Ns 1000 Ml) 1,000 mls @ 150 mls/hr IV .Q6H40M KORY Last Admin: 04/13/17 18:45 Dose: 150 mls/hr Piperacillin Sod/Tazobactam Sod (Zosyn 3.375 In Ns 100ml) 100 mls @ 200 mls/hr IVPB Q6 KORY PRN Reason: Protocol Stop: 04/14/17 00:29 Last Admin: 04/13/17 18:19 Dose: 200 mls/hr Lactated Ringer's (Lactated Ringer's) 2,000 mls @ 500 mls/hr IV .Q4H KORY Ondansetron HCl (Zofran Inj) 4 mg IVP Q4 PRN PRN Reason: Nausea/Vomiting Last Admin: 04/13/17 15:26 Dose: 4 mg Oxycodone/Acetaminophen (Percocet 5/325 Mg Tab) 1 tab PO Q4H PRN PRN Reason: Pain, moderate (4-7) Stop: 04/16/17 13:10
[2017-04-14] MEDS: DiphenhydrAMINE 50 mg/ml Inj IVP PRN ×3 (00:19→15:57)
[2017-04-14] MEDS: Lactated Ringer's 2,000 ML IV SCH ×2 (00:37→06:44)
[2017-04-14] MEDS: HYDROmorphone 1 mg/ml ISec IVP PRN ×2 (01:12→04:02)
[2017-04-14] MEDS: Dextrose 5%/0.45% NS 1,000 ML IV SCH ×2 (06:43→09:37)
[2017-04-14 08:57] LABS: BASO # 0.01 K/mm3 (0.0-2.0); BASO % 0.1 % (0.0-3.0); HEMOGLOBIN 8.4 gm/dL (12.0-16.0); LYMPH # 0.8 (1.2-3.4); LYMPH % 6.9 % (22.0-35.0); MEAN CELL VOLUME 68.2 fL (80.0-105.0); MEAN CORPUSCULAR HEMOGLOBIN 20.8 pg (25.0-35.0); MEAN CORPUSCULAR HGB CONC 30.5 g/dl (31.0-37.0); MEAN PLATELET VOLUME 10.2 fl (7.0-11.0); MONO # 1.2 (0.1-0.6); PLATELET COUNT 284 10^3/uL (120.0-450.0); RBC 4.03 10^6/uL (3.5-6.1); RED CELL DISTRIBUTION WIDTH 16.4 % (11.5-14.5); WHITE BLOOD COUNT 10.9 10^3/ul (4.5-11.0)
[2017-04-14 09:13] LABS: ALB/GLOB RATIO 1.2 (1.1-1.8); ALBUMIN 3.6 g/dL (3.0-4.8); ALT/SGPT 346 U/L (7-56); AST/SGOT 179 U/L (15-39); BLOOD UREA NITROGEN 8 mg/dL (7-21); CALCIUM 8.2 mg/dL (8.4-10.5); GFR AFRICAN-AMERICAN > 60; GFR NON-AFRICAN AMERICAN > 60
--- NOTE | 2017-04-14 09:51 | CP.PCM.PN ---
<Pippa Walker - Last Filed: 04/14/17 17:36> Subjective - Date & Time of Evaluation Date of Evaluation: 04/14/17 Time of Evaluation: 07:30 - Subjective Subjective: PGY-4 GI Follow-up Pt seen and examined bedside Denies any abd pain Denies any N/V/D has not attempted any sig PO intake + BM + Flatus ROS: 12-point ROS conducted, other than what was mentioned above is otherwise neg Objective - Vital Signs/Intake and Output Vital Signs (last 24 hours): Temp Pulse Resp BP Pulse Ox 97.2 F L 91 H 20 150/90 97 04/13/17 16:00 04/13/17 16:00 04/13/17 16:00 04/13/17 16:00 04/13/17 16:00 Intake and Output: 04/14/17 04/14/17 06:59 18:59 Intake Total 120 Balance 120 - Medications Medications: Current Medications Diphenhydramine HCl (Benadryl) 50 mg IVP Q4H PRN PRN Reason: Allergy symptoms Last Admin: 04/14/17 04:00 Dose: 50 mg Hydromorphone HCl (Dilaudid) 1 mg IVP Q3H PRN PRN Reason: Pain, severe (8-10) Last Admin: 04/14/17 04:02 Dose: 1 mg Dextrose/Sodium Chloride (Dextrose 5%/0.45% Ns 1000 Ml) 1,000 mls @ 150 mls/hr IV .Q6H40M [facility] Last Admin: 04/14/17 09:37 Dose: 150 mls/hr Lactated Ringer's (Lactated Ringer's) 2,000 mls @ 500 mls/hr IV .Q4H KORY Last Admin: 04/14/17 06:44 Dose: 500 mls/hr Ibuprofen (Motrin Tab) 400 mg PO Q6H PRN PRN Reason: Headache Last Admin: 04/14/17 09:35 Dose: 400 mg Ondansetron HCl (Zofran Inj) 4 mg IVP Q4 PRN PRN Reason: Nausea/Vomiting Last Admin: 04/14/17 09:35 Dose: 4 mg Oxycodone/Acetaminophen (Percocet 5/325 Mg Tab) 1 tab PO Q4H PRN PRN Reason: Pain, moderate (4-7) Stop: 04/16/17 13:10 - Labs Labs: 04/14/17 08:30 04/14/17 08:30 - Constitutional Appears: Well, No Acute Distress - Eye Exam Eye Exam: Normal appearance - ENT Exam ENT Exam: Mucous Membranes Moist, Normal Exam - Respiratory Exam Respiratory Exam: Clear to Ausculation Bilateral, NORMAL BREATHING PATTERN. absent: Rales, Rhonchi, Wheezes, Stridor - Cardiovascular Exam Cardiovascular Exam: REGULAR RHYTHM, +S1, +S2 - GI/Abdominal Exam GI & Abdominal Exam: Soft, Normal Bowel Sounds. absent: Distended, Guarding, Rigid, Tenderness - Extremities Exam Extremities Exam: Normal Inspection. absent: Calf Tenderness - Psychiatric Exam Psychiatric exam: Normal Affect, Normal Mood - Skin Skin Exam: Dry, Intact, Normal Color, Warm Assessment and Plan - Assessment and Plan (Free Text) Assessment: Patient is 51yo female with PMHx significant for morbid obesity s/p Mercedez-en-Y gastric bypass surgery who presented to the ED with abdominal pain. -Abdominal pain -Elevated LFTs (imptoving), etiology: passed stone vs stricture -Cholelithiasis -Nausea and vomiting -H/O Mercedez-en-Y gastric bypass Plan: -MRCP reviewed, no obvious filling defects, No need for ERCP at this time -Spoke to pt and family, they would like to proceed with cholecystectomy at a larger tertiary center -asymptomatic at this time -advance diet as tolerated to low fat -Increase pain medications to alleviate symptoms; discussed with primary service -Zofran PRN nausea -LFTs after trending down: etiology passed stone?? versus stricture? -will speak to the primary team in regards to pt's wishes, apparently transfer to [facility] pending -No acute GI intervention indicated at this time -recommend an additional 1 week of abx as oupt, can transition to Quinolones and flagyl will d/w Dr. Haskins <Hubert Haskins - Last Filed: 04/14/17 18:59> Objective - Vital Signs/Intake and Output Vital Signs (last 24 hours): Temp Pulse Resp BP Pulse Ox 97.2 F L 91 H 20 150/90 97 04/13/17 16:00 04/13/17 16:00 04/13/17 16:00 04/13/17 16:00 04/13/17 16:00 Intake and Output: 04/14/17 04/14/17 06:59 18:59 Intake Total 120 Balance 120 - Medications Medications: Current Medications Diphenhydramine HCl (Benadryl) 50 mg IVP Q4H PRN PRN Reason: Allergy symptoms Last Admin: 04/14/17 15:57 Dose: 50 mg Hydromorphone HCl (Dilaudid) 1 mg IVP Q3H PRN PRN Reason: Pain, severe (8-10) Last Admin: 04/14/17 04:02 Dose: 1 mg Lactated Ringer's (Lactated Ringer's) 2,000 mls @ 500 mls/hr IV .Q4H KORY Last Admin: 04/14/17 06:44 Dose: 500 mls/hr Ibuprofen (Motrin Tab) 400 mg PO Q6H PRN PRN Reason: Headache Last Admin: 04/14/17 18:04 Dose: 400 mg Ondansetron HCl (Zofran Inj) 4 mg IVP Q4 PRN PRN Reason: Nausea/Vomiting Last Admin: 04/14/17 09:35 Dose: 4 mg - Labs Labs: 04/14/17 08:30 04/14/17 08:30 Attending/Attestation - Attestation I have personally seen and examined this patient.: Yes I have fully participated in the care of the patient.: Yes I have reviewed all pertinent clinical information, including history, physical exam and plan: Yes Notes (Text): 04/14/17 18:45 51 year old female with h/o obesity s/p RNY gastric bypass who presents with severe epigastric pain radiating to the back, cholelithiasis, elevated lfts, and dilated CBD suggestive of choledocholithiais 1. Cholelithiasis 2. Elevated LFTs Plan: -MRCP reviewed, no evidence of choledocholithaisis, pancreatic atrophy, no pancreatic mass noted, distal tapering the CBD noted, uncertain significance -endoscopic ultrasound is not possible in this patient because of RNY anatomy -if additional imaging is required, would consider CT Abdomen with IV contrast pancreatic protocol, though no pancreatic lesion was noted on MRI -no indication for ERCP at this time -recommend cholecystectomy, whether it is here or somewhere else, per patient preference, however I'm not sure she will be accepted for transfer anywhere and if surgery is not planned here, she should be discharged so she can seek surgical treatment elsewhere -continue antibiotics -viral hepatitis serologies negative -await autoimmune serologies -may have passed a CBD stone -monitor daily lfts -discussed situation with family in detail
[2017-04-14] MEDS ORDERED: Potassium Chl 20mEq & D5W 1,000 ML IV SCH (10:55)
[2017-04-14 13:04] LABS: HEPATITIS B SURFACE AG NEGATIVE (NEGATIVE)
[2017-04-14 13:09] LABS: HEPATITIS A IGM NEGATIVE (NEGATIVE)
[2017-04-14 13:10] LABS: HEPATITIS B CORE AB NEGATIVE (NEGATIVE)
[2017-04-14 13:21] LABS: HEPATITIS C ANTIBODY NEGATIVE (NEGATIVE)
--- NOTE | 2017-04-14 14:42 | CP.PCM.PN ---
Subjective - Date & Time of Evaluation Date of Evaluation: 04/14/17 Time of Evaluation: 07:00 - Subjective Subjective: General Surgery Dr. Torres Pt S&E @bedside. denies any abd pain, F/C, N/V, D/C. tolerating water. Objective - Vital Signs/Intake and Output Vital Signs (last 24 hours): Temp Pulse Resp BP Pulse Ox 97.2 F L 91 H 20 150/90 97 04/13/17 16:00 04/13/17 16:00 04/13/17 16:00 04/13/17 16:00 04/13/17 16:00 Intake and Output: 04/14/17 04/14/17 06:59 18:59 Intake Total 120 Balance 120 - Medications Medications: Current Medications Diphenhydramine HCl (Benadryl) 50 mg IVP Q4H PRN PRN Reason: Allergy symptoms Last Admin: 04/14/17 04:00 Dose: 50 mg Hydromorphone HCl (Dilaudid) 1 mg IVP Q3H PRN PRN Reason: Pain, severe (8-10) Last Admin: 04/14/17 04:02 Dose: 1 mg Lactated Ringer's (Lactated Ringer's) 2,000 mls @ 500 mls/hr IV .Q4H KROY Last Admin: 04/14/17 06:44 Dose: 500 mls/hr Ibuprofen (Motrin Tab) 400 mg PO Q6H PRN PRN Reason: Headache Last Admin: 04/14/17 09:35 Dose: 400 mg Ondansetron HCl (Zofran Inj) 4 mg IVP Q4 PRN PRN Reason: Nausea/Vomiting Last Admin: 04/14/17 09:35 Dose: 4 mg - Labs Labs: 04/14/17 08:30 04/14/17 08:30 - Constitutional Appears: Non-toxic, No Acute Distress - Head Exam Head Exam: NORMAL INSPECTION - Eye Exam Eye Exam: Normal appearance - ENT Exam ENT Exam: Mucous Membranes Moist - Respiratory Exam Respiratory Exam: NORMAL BREATHING PATTERN. absent: Accessory Muscle Use, Respiratory Distress - Cardiovascular Exam Cardiovascular Exam: absent: Bradycardia, Tachycardia - GI/Abdominal Exam GI & Abdominal Exam: Soft. absent: Distended, Tenderness - Extremities Exam Extremities Exam: Normal Inspection - Neurological Exam Neurological Exam: Alert, Awake, Oriented x3 - Psychiatric Exam Psychiatric exam: Normal Affect, Normal Mood - Skin Skin Exam: Dry, Intact, Normal Color, Warm Assessment and Plan - Assessment and Plan (Free Text) Assessment: 51 y/o F w/ choledocholithiasis, resolved abd pain - likely passed stone - recommend cholecystectomy - CLD - pain management - pt awaiting transfer to another hospital Pt discussed w/ Dr. Brian Rebollar DO PGY2
--- NOTE | 2017-04-14 21:55 | CP.PCM.PN ---
<SÁNCHEZIGNACIO - Last Filed: 04/14/17 21:50> Subjective - Date & Time of Evaluation Date of Evaluation: 04/14/17 Time of Evaluation: 11:00 - Subjective Subjective: Medicine Progress Note: Pt seen and assessed at bedside. Pt has no new medical complaints at this time and states that her abdominal pain has completely resolved. She does report an episode overnight where her IV line needed to be replaced. She is still wishing to be transferred elsewhere for her surgical procedure. She denies chest pain, shortness of breath, abdominal pain, diarrhea or fever. Objective - Vital Signs/Intake and Output Vital Signs (last 24 hours): Temp Pulse Resp BP Pulse Ox 97.2 F L 91 H 20 150/90 97 04/13/17 16:00 04/13/17 16:00 04/13/17 16:00 04/13/17 16:00 04/13/17 16:00 Intake and Output: 04/14/17 04/15/17 18:59 06:59 Intake Total 1800 Balance 1800 - Medications Medications: Current Medications Diphenhydramine HCl (Benadryl) 50 mg IVP Q4H PRN PRN Reason: Allergy symptoms Last Admin: 04/14/17 15:57 Dose: 50 mg Hydromorphone HCl (Dilaudid) 1 mg IVP Q3H PRN PRN Reason: Pain, severe (8-10) Last Admin: 04/14/17 04:02 Dose: 1 mg Lactated Ringer's (Lactated Ringer's) 2,000 mls @ 500 mls/hr IV .Q4H KORY Last Admin: 04/14/17 06:44 Dose: 500 mls/hr Ibuprofen (Motrin Tab) 400 mg PO Q6H PRN PRN Reason: Headache Last Admin: 04/14/17 18:04 Dose: 400 mg Ondansetron HCl (Zofran Inj) 4 mg IVP Q4 PRN PRN Reason: Nausea/Vomiting Last Admin: 04/14/17 09:35 Dose: 4 mg - Labs Labs: 04/14/17 08:30 04/14/17 08:30 - Constitutional Appears: No Acute Distress - Head Exam Head Exam: NORMAL INSPECTION, NORMOCEPHALIC - Eye Exam Eye Exam: EOMI, Normal appearance - ENT Exam ENT Exam: Mucous Membranes Moist, Normal Exam - Neck Exam Neck Exam: Full ROM - Respiratory Exam Respiratory Exam: Clear to Ausculation Bilateral, NORMAL BREATHING PATTERN. absent: Rales, Rhonchi, Wheezes, Respiratory Distress - Cardiovascular Exam Cardiovascular Exam: REGULAR RHYTHM, RRR, +S1, +S2 - GI/Abdominal Exam GI & Abdominal Exam: Normal Bowel Sounds. absent: Distended, Firm, Tenderness - Extremities Exam Extremities Exam: Normal Capillary Refill. absent: Calf Tenderness, Pedal Edema - Neurological Exam Neurological Exam: Alert, Awake, Oriented x3 - Psychiatric Exam Psychiatric exam: Normal Affect, Normal Mood - Skin Skin Exam: Dry, Intact, Normal Color, Warm Assessment and Plan - Assessment and Plan (Free Text) Assessment: Ms. Freire is a 51 year old female, whose past medical history includes gastric bypass, pancreatitis, and cosmetic surgery, who presented with complaints of gradually worsening epigastric pain radiating to her back for the past few days. Plan: 1. Cholelithiasis/CBD -Surgery consulted, all recommendations appreciated -GI consulted, all recommendations appreciated -MRCP showed distended GB with fluid level, CBD dilation to 1.0cm with no definitive filling defects and hepatosplenomegaly -GI recommendations: no ERCP needed as no obstructing stone in CBD, cholecystectomy still needs to be done (at a larger facility per pt wishes), can advance diet as tolerated, transition to PO FQ's and flagyl when appropriate -Start Zosyn and Flagyl, per GI for cholangitis -DC D5W at 150mls/hr and start LR at 500mls/hr, per GI -Dilaudid and motrin for pain control -Zofran PRN for N/V -patient still awaiting transfer process to [facility] for cholecystectomy 2. Anemia -stable H/H -will cont to monitor 3. GI/DVT Prophylaxis -zofran/scd's Patient seen and case discussed in detail with attending, Dr. Yung. <Aga REINA,Karsonwagenerelvira - Last Filed: 04/15/17 17:05> Objective - Vital Signs/Intake and Output Vital Signs (last 24 hours): Temp Pulse Resp BP Pulse Ox 99.1 F 91 H 20 171/101 H 96 04/15/17 08:23 04/15/17 14:58 04/15/17 08:23 04/15/17 14:58 04/15/17 08:23 Intake and Output: 07/29/17 07/29/17 06:59 18:59 Intake Total 960 2860 Balance 960 2860 - Medications Medications: Current Medications Diphenhydramine HCl (Benadryl) 50 mg IVP Q4H PRN PRN Reason: Allergy symptoms Last Admin: 04/14/17 15:57 Dose: 50 mg Hydromorphone HCl (Dilaudid) 1 mg IVP Q3H PRN PRN Reason: Pain, severe (8-10) Last Admin: 04/14/17 04:02 Dose: 1 mg Metronidazole (Flagyl) 500 mg in 100 mls @ 100 mls/hr IVPB Q8 KORY PRN Reason: Protocol Last Admin: 04/15/17 16:12 Dose: Not Given Ceftriaxone Sodium (Rocephin 1 Gram Ivpb) 1 gm in 100 mls @ 100 mls/hr IVPB DAILY KORY PRN Reason: Protocol Last Admin: 04/15/17 09:51 Dose: 100 mls/hr Ibuprofen (Motrin Tab) 400 mg PO Q6H PRN PRN Reason: Headache Last Admin: 04/15/17 05:54 Dose: 400 mg Lisinopril (Zestril) 10 mg PO DAILY KORY Lisinopril (Zestril) 10 mg PO DAILY KORY Last Admin: 04/15/17 14:58 Dose: 10 mg Ondansetron HCl (Zofran Inj) 4 mg IVP Q4 PRN PRN Reason: Nausea/Vomiting Last Admin: 04/14/17 09:35 Dose: 4 mg - Labs Labs: 04/14/17 08:30 04/14/17 08:30 Attending/Attestation - Attestation I have personally seen and examined this patient.: Yes I have fully participated in the care of the patient.: Yes I have reviewed all pertinent clinical information, including history, physical exam and plan: Yes Notes (Text): 04/15/17 17:04 Patient was seen and examined with healthcare or medical. Agreed with resident assessment and plan. Patient is feeling better, abdominal pain has improved.LFT are coming down, no filling defect on MRCP, no plan for ERCP, Patient will need cholycystectomy, want to have it done at tertiary care center , awaiting for transfer. Management plan was discussed in detail with patient Education was provided.
--- NOTE | 2017-04-15 08:28 | CP.PCM.PN ---
Subjective - Date & Time of Evaluation Date of Evaluation: 04/15/17 Time of Evaluation: 08:25 - Subjective Subjective: General Surgery Progress Note Resident: Gladys Attending: Brian HPI: Patient seen adn examined at bedside. Complains of headache that is constant. Complains not receiving a vegetarian diet. Complains that her BP is high. States she is waiting for a bed at [facility]. -N/V/CP/SOB Objective - Vital Signs/Intake and Output Vital Signs (last 24 hours): Temp Pulse Resp BP Pulse Ox 99.1 F 91 H 20 176/101 H 96 04/15/17 08:23 04/15/17 08:23 04/15/17 08:23 04/15/17 08:23 04/15/17 08:23 Intake and Output: 04/15/17 04/15/17 06:59 18:59 Intake Total 960 1900 Balance 960 1900 - Medications Medications: Current Medications Diphenhydramine HCl (Benadryl) 50 mg IVP Q4H PRN PRN Reason: Allergy symptoms Last Admin: 04/14/17 15:57 Dose: 50 mg Hydromorphone HCl (Dilaudid) 1 mg IVP Q3H PRN PRN Reason: Pain, severe (8-10) Last Admin: 04/14/17 04:02 Dose: 1 mg Ibuprofen (Motrin Tab) 400 mg PO Q6H PRN PRN Reason: Headache Last Admin: 04/15/17 05:54 Dose: 400 mg Ondansetron HCl (Zofran Inj) 4 mg IVP Q4 PRN PRN Reason: Nausea/Vomiting Last Admin: 04/14/17 09:35 Dose: 4 mg - Labs Labs: 04/14/17 08:30 04/14/17 08:30 - Constitutional Appears: Well, No Acute Distress - Eye Exam Eye Exam: EOMI - ENT Exam ENT Exam: Mucous Membranes Moist - Respiratory Exam Respiratory Exam: Clear to Ausculation Bilateral - GI/Abdominal Exam GI & Abdominal Exam: Soft. absent: Distended, Tenderness - Neurological Exam Neurological Exam: Alert, Awake, Oriented x3 Assessment and Plan - Assessment and Plan (Free Text) Assessment: 51 y/o WF with cholelithiasis * heart health vegetarian diet * d/c fluids * recommend 800 mg PRN Ibuprofen for KERN * recommend BP control * Waiting for bed at [facility] for transfer * Will discuss with Dr. Brian Graham DO PGY-1
[2017-04-15 09:05] LABS: CERULOPLASMIN 37 mg/dL (18-53)
--- NOTE | 2017-04-15 09:21 | CP.PCM.PN ---
<Christopher Brady - Last Filed: 04/15/17 09:26> Subjective - Date & Time of Evaluation Date of Evaluation: 04/15/17 Time of Evaluation: 08:30 - Subjective Subjective: PGY5 GI Fellow Progress Note Patient seen and examined bedside this morning. The patient has no pain at present and has just finished eating breakfast without issue. She has no nausea , vomiting in the last 24H. BP has been noted to be elevated and patient has headache. Otherwise no issues noted. 12 system ROS performed and negative except where stated. Objective - Vital Signs/Intake and Output Vital Signs (last 24 hours): Temp Pulse Resp BP Pulse Ox 99.1 F 91 H 20 176/101 H 96 04/15/17 08:23 04/15/17 08:23 04/15/17 08:23 04/15/17 08:23 04/15/17 08:23 Intake and Output: 04/15/17 04/15/17 06:59 18:59 Intake Total 960 1900 Balance 960 1900 - Medications Medications: Current Medications Diphenhydramine HCl (Benadryl) 50 mg IVP Q4H PRN PRN Reason: Allergy symptoms Last Admin: 04/14/17 15:57 Dose: 50 mg Hydromorphone HCl (Dilaudid) 1 mg IVP Q3H PRN PRN Reason: Pain, severe (8-10) Last Admin: 04/14/17 04:02 Dose: 1 mg Ibuprofen (Motrin Tab) 400 mg PO Q6H PRN PRN Reason: Headache Last Admin: 04/15/17 05:54 Dose: 400 mg Ondansetron HCl (Zofran Inj) 4 mg IVP Q4 PRN PRN Reason: Nausea/Vomiting Last Admin: 04/14/17 09:35 Dose: 4 mg - Labs Labs: 04/14/17 08:30 04/14/17 08:30 - Constitutional Appears: Non-toxic, No Acute Distress - Eye Exam Eye Exam: EOMI, PERRL - ENT Exam ENT Exam: Mucous Membranes Moist - Respiratory Exam Respiratory Exam: Clear to Ausculation Bilateral. absent: Rales, Rhonchi, Wheezes - Cardiovascular Exam Cardiovascular Exam: RRR, +S1, +S2 - GI/Abdominal Exam GI & Abdominal Exam: Soft, Normal Bowel Sounds. absent: Distended, Firm, Guarding, Rigid, Tenderness, Organomegaly - Extremities Exam Extremities Exam: Normal Inspection. absent: Pedal Edema - Neurological Exam Neurological Exam: Alert, Awake, Oriented x3 - Psychiatric Exam Psychiatric exam: Normal Affect, Normal Mood - Skin Skin Exam: Dry, Warm Assessment and Plan - Assessment and Plan (Free Text) Assessment: Patient is 51yo female with PMHx significant for morbid obesity s/p Mercedez-en-Y gastric bypass surgery who presented to the ED with abdominal pain. -Abdominal pain -Elevated LFTs, mixed picture -Cholelithiasis -Nausea and vomiting, resolved -H/O Mercedez-en-Y gastric bypass -Family history/personal history of familial mediterranean fever Plan: -Abdominal pain resolved at this time -LFTs downtrending, will likely take time for T bili to normalize -Recommend cholecystectomy, F/U surgical recommendations -Low fat diet encouraged -Patient does not require ERCP at this time -No further recommendations from GI service; should follow up with [facility] if she obtains coverage and have repeat CMP in 2-3 weeks <Eusebio Park MD - Last Filed: 04/15/17 16:20> Objective - Vital Signs/Intake and Output Vital Signs (last 24 hours): Temp Pulse Resp BP Pulse Ox 99.1 F 91 H 20 171/101 H 96 04/15/17 08:23 04/15/17 14:58 04/15/17 08:23 04/15/17 14:58 04/15/17 08:23 Intake and Output: 04/15/17 04/15/17 06:59 18:59 Intake Total 960 2860 Balance 960 2860 - Medications Medications: Current Medications Diphenhydramine HCl (Benadryl) 50 mg IVP Q4H PRN PRN Reason: Allergy symptoms Last Admin: 04/14/17 15:57 Dose: 50 mg Hydromorphone HCl (Dilaudid) 1 mg IVP Q3H PRN PRN Reason: Pain, severe (8-10) Last Admin: 04/14/17 04:02 Dose: 1 mg Metronidazole (Flagyl) 500 mg in 100 mls @ 100 mls/hr IVPB Q8 KORY PRN Reason: Protocol Last Admin: 04/15/17 16:12 Dose: Not Given Ceftriaxone Sodium (Rocephin 1 Gram Ivpb) 1 gm in 100 mls @ 100 mls/hr IVPB DAILY KORY PRN Reason: Protocol Last Admin: 04/15/17 09:51 Dose: 100 mls/hr Ibuprofen (Motrin Tab) 400 mg PO Q6H PRN PRN Reason: Headache Last Admin: 04/15/17 05:54 Dose: 400 mg Lisinopril (Zestril) 10 mg PO DAILY KORY Lisinopril (Zestril) 10 mg PO DAILY KORY Last Admin: 04/15/17 14:58 Dose: 10 mg Ondansetron HCl (Zofran Inj) 4 mg IVP Q4 PRN PRN Reason: Nausea/Vomiting Last Admin: 04/14/17 09:35 Dose: 4 mg - Labs Labs: 04/14/17 08:30 04/14/17 08:30 Attending/Attestation - Attestation I have personally seen and examined this patient.: Yes I have fully participated in the care of the patient.: Yes I have reviewed all pertinent clinical information, including history, physical exam and plan: Yes Notes (Text): 04/15/17 16:16 Patient seen with GI fellow. This is a 51 yo female with PMHx significant for morbid obesity s/p Mercedez-en-Y gastric bypass surgery who presented to the ED with abdominal pain found to have cholelithaisis and dilated CBd without choledocholithiasis. Needs surgical cholecystectomy but [facility] to [facility]. No indication for ERCP. Diet as tolerated.
[2017-04-15] MEDS: metroNIDAZOLE IV 500 mg/100 ml 500 MG/100 ML BAG IVPB SCH ×2 (09:51→16:12)
[2017-04-15] MEDS ORDERED: cefTRIAXone 1 gm 1 GM/100 ML BAG IVPB SCH (10:00)
[2017-04-15 17:15] VITALS: BP 179/112; PULSE 83; TEMP 98.5; O2SAT 98
== END 2017-04-15 18:16 | disposition home or self-care (01) | DRG 207 ==
LOC: ED 06:01 → ERH 08:48 → 5RNO 11:02
PROVIDERS: ADMIT Internal Medicine; ATTEND Internal Medicine
DX: K80.70 Calculus of gallbladder and bile duct without cholecystitis without obstruction (principal); J90 Pleural effusion, not elsewhere classified; R16.0 Hepatomegaly, not elsewhere classified; J45.909 Unspecified asthma, uncomplicated; Z98.84 Bariatric surgery status; R40.2412 Glasgow coma scale score 13-15, at arrival to emergency department; K83.8 Other specified diseases of biliary tract; D64.9 Anemia, unspecified; Z86.19 Personal history of other infectious and parasitic diseases; Z87.898 Personal history of other specified conditions; M51.27 Other intervertebral disc displacement, lumbosacral region; R03.0 Elevated blood-pressure reading, without diagnosis of hypertension